=== PATIENT | male | born 1965 | race Caucasian/White ===

== ENCOUNTER 2017-11-05 16:50 | Observation (INO) | payer SELFPAY ==
[~2017-11-05] VITALS: Ht 182.9 cm; Wt 85.1 kg
[2017-11-05 18:27] LABS: HEMATOCRIT 27.4 % (38.0-50.0); HEMOGLOBIN 9.9 G/DL (12.5-16.6); MCH 30.3 PG (29.0-34.0); MCHC 36.1 G/DL (30.0-36.0); MCV 83.8 FL (86-99); PLATELET COUNT 206 K/uL (156-360); RBC DIS.WIDTH-CV 11.9 % (11.8-14.6); RBC DIS.WIDTH-SD 36.2 % (39-53); RED BLOOD COUNT 3.27 M/uL (4.00-5.50); WHITE BLOOD COUNT 7.1 K/uL (4.1-10.2)
[2017-11-05 18:29] LABS: CARBON DIOXIDE (BICARBONATE) 28.5 MEQ/L (20-31)
[2017-11-05 18:33] LABS: INTER. NORMALIZED RATIO 1.1
[2017-11-05 18:38] LABS: ALBUMIN 3.3 g/dL (3.2-4.8); CHLORIDE 90 mEq/L (99-109); POTASSIUM 4.8 mEq/L (3.7-5.4); SODIUM 123 mEq/L (136-147)
[2017-11-05 18:40] LABS: APPEARANCE CLEAR ((CLEAR)); BILIRUBIN NEGATIVE; BLOOD NEGATIVE; COLOR COLORLESS ((YELLOW)); GLUCOSE (STRIP) >=500; KETONES NEGATIVE; LEUKOCYTES NEGATIVE; NITRITE NEGATIVE; PROTEIN (STRIP) 30; SPECIFIC GRAVITY 1.023 (1.000-1.030); UCUL ADDED? NO; UROBILINOGEN 0.2 MG/DL (0.2-1.0)
[2017-11-05 18:41] LABS: TOTAL PROTEIN 6.2 g/dL (6.4-8.3)
[2017-11-05 18:42] LABS: TOTAL BILIRUBIN 0.6 mg/dL (0.0-1.0)
[2017-11-05 18:44] LABS: ALKALINE PHOSPHATASE 142 IU/L (3-129); CREATININE 1.6 mg/dL (0.6-1.3)
[2017-11-05 18:45] LABS: UREA NITROGEN (BUN) 20 mg/dL (9-23)
[2017-11-05 18:46] LABS: AST (GOT) 13 IU/L (2-34); DIRECT BILIRUBIN 0.2 mg/dL (0.0-0.3)
[2017-11-05 18:47] LABS: ALT (GPT) 8 IU/L (3-49)
[2017-11-05 18:48] LABS: LIPASE 61 U/L (1.0-51.0)
[2017-11-05 18:54] LABS: TROP-I INTERPRETATION NEGATIVE; TROPONIN-I 0.02 ng/mL (0.0-0.30)
[2017-11-05 19:08] LABS: GFR ESTIMATE (CALCULATED) 49 mL/min/ (58.99-99999); GLUCOSE 708 mg/dL (70-99)
[2017-11-05] MEDS ORDERED: GLUCOVANCE 51 TABLET PO (22:17)
[2017-11-06 02:05] VITALS: BP 143/77
[2017-11-06 02:40] LABS: HDL CHOLESTEROL 49 MG/DL (Desirable>=40); IRON 45 MCG/DL (35-150); LDL CHOLESTEROL 99 mg/dL (Desirable<100); NON-HDL CHOLESTEROL 124 mg/dL (Desirable<160); TOTAL CHOLESTEROL 173 mg/dL (Desirable<200); TRIGLYCERIDES 125 MG/DL (Normal: <150)
[2017-11-06 05:29] LABS: HEMATOCRIT 27.6 % (38.0-50.0); HEMOGLOBIN 9.7 G/DL (12.5-16.6); MCH 29.3 PG (29.0-34.0); MCHC 35.1 G/DL (30.0-36.0); MCV 83.4 FL (86-99); PLATELET COUNT 225 K/uL (156-360); RBC DIS.WIDTH-CV 11.9 % (11.8-14.6); RBC DIS.WIDTH-SD 35.8 % (39-53); RED BLOOD COUNT 3.31 M/uL (4.00-5.50); WHITE BLOOD COUNT 5.8 K/uL (4.1-10.2)
[2017-11-06 05:51] LABS: CHLORIDE 100 MEQ/L (99-109); CREATININE 1.2 MG/DL (0.6-1.3); GFR ESTIMATE (CALCULATED) > 59 mL/min/ (58.99-99999); UREA NITROGEN (BUN) 17 mg/dL (9-23)
[2017-11-06 05:55] LABS: GLUCOSE 258 mg/dL (70-99); POTASSIUM 3.3 MEQ/L (3.7-5.4); SODIUM 134 MEQ/L (136-147)
[2017-11-06 07:39] LABS: FERRITIN 314 NG/ML (22-322)
[2017-11-06 08:00] VITALS: BP 130/60
[2017-11-06 19:00] VITALS: BP 119/71
[2017-11-07] VITALS: BP 138/71
[2017-11-07 04:01] VITALS: BP 130/79
[2017-11-07 05:31] LABS: HEMATOCRIT 28.4 % (38.0-50.0); HEMOGLOBIN 9.5 G/DL (12.5-16.6); MCH 29.1 PG (29.0-34.0); MCHC 33.5 G/DL (30.0-36.0); MCV 87.1 FL (86-99); PLATELET COUNT 224 K/uL (156-360); RBC DIS.WIDTH-CV 12.2 % (11.8-14.6); RBC DIS.WIDTH-SD 38.9 % (39-53); RED BLOOD COUNT 3.26 M/uL (4.00-5.50); WHITE BLOOD COUNT 5.1 K/uL (4.1-10.2)
[2017-11-07 06:19] LABS: CHLORIDE 108 MEQ/L (99-109); CREATININE 1.3 MG/DL (0.6-1.3); GFR ESTIMATE (CALCULATED) > 59 mL/min/ (58.99-99999); SODIUM 138 MEQ/L (136-147); UREA NITROGEN (BUN) 20 mg/dL (9-23)
[2017-11-07 06:23] LABS: GLUCOSE 94 mg/dL (70-99); POTASSIUM 4.1 MEQ/L (3.7-5.4)
[2017-11-07 07:43] LABS: HEMOGLOBIN A1c (GLYCOHEMOGLOB) 14.3 % (Below 5.7)
[2017-11-07 07:50] VITALS: BP 137/74
[2017-11-07] MEDS ORDERED: NOVOLOG 10100 UNITS/ SC (08:13)
[2017-11-07] MEDS ORDERED: ATORVASTATIN CA40 MG PO (08:13)
[2017-11-07] MEDS ORDERED: LOSARTAN POTASS25 MG PO (08:13)
[2017-11-07] MEDS ORDERED: ASPIR-LOW81 MG PO (08:13)
[2017-11-07] MEDS ORDERED: LEVEMIR100 UNIT/2 SC (08:13)
[2017-11-07 10:49] LABS: HEMOGLOBIN A1c (GLYCOHEMOGLOB) 14.3 % (Below 5.7)
[2017-11-07] MEDS ORDERED: GLUCOVANCE 51 TABLET PO (10:51)
[2017-11-07 11:58] VITALS: BP 143/80
== END 2017-11-07 14:31 | disposition home or self-care (01) ==
LOC: EME 16:50 → EDOF 23:17 → ENRESERV 23:18 → 4SOUTH 11-06 01:48 → ENRESERV 11-06 01:57 → 4SOUTH 11-06 01:57
PROVIDERS: Emergency Medicine; Hospitalist; Physician Assistant Medical
DX: N17.9 Acute kidney failure, unspecified (principal); G43.809 Other migraine, not intractable, without status migrainosus; E86.0 Dehydration; E87.6 Hypokalemia; E11.65 Type 2 diabetes mellitus with hyperglycemia; E11.319 Type 2 diabetes mellitus with unspecified diabetic retinopathy without macular edema; D64.9 Anemia, unspecified; I10 Essential (primary) hypertension; Z91.14 Patient's other noncompliance with medication regimen; Z91.19 Patient's noncompliance with other medical treatment and regimen; H53.8 Other visual disturbances; Z90.49 Acquired absence of other specified parts of digestive tract; Z86.19 Personal history of other infectious and parasitic diseases
CPT/HCPCS: 70450; 70551; 80048; 80061; 80076; 81003; 82010; 82272; 82607; 82728; 82803; 82948; 83036; 83540; 83605; 83690; 83930; 83935; 84484; 85027; 85610; 85651; 87502; 93005; 93880; 99281; 99285; G0378; J1650; J1815; J7030; J7120